=== PATIENT | female | born 1955 | race Caucasian/White ===

== ENCOUNTER 2022-07-14 13:20 | Emergency (ER) | payer OTHER ==
--- OUTSIDE RECORDS SUMMARY | 2022-07-14 13:32 | XMS REPORT | Continuity of Care Document ---
:1955 Author Organization [facility] t Address [address] [place] [address] Care Team Providers Name Role Phone PCP, PATIENT DOES NOT HAVE A Primary Care Physician Unavaila HEATHER Gibbons Attending Clinician Unavailable Heather Villalta Attending Clinician KENDALL HILLIARD Attending Clinician Unavailable Kendall Hilliard MD Attending Clinician Doctor Unassigned, [place] Attending Clinician Unavailable Pob, Adc Lab Main Attending Clinician Unavailable JASON Attending Clinician Unavailable JASON Admitting Clinician Unavailable Payers Payer Name Policy Type Policy Number Effective Date Expiration Date S ourgolden MEDICARE PART A \T\ [id number] 2018 B 00:00:00 [employer] [id number] 2018 00:00:00 COMMERCIAL [id number] NON-CONTRACT GENERIC [place]IC[place]: [id number] 2018 Dash - 00:00:00 [facility] [employer] [id number] 2018 (MEDICARE 00:00:00 SUPPLEMENT) [place]IC[place]: [id number] 2018 [employer] I-frontdesk 00:00:00 Problems Condition Condition Condition Status Onset Resolution Last Treating Co mments Source Name Details Category Date Date Treatment Clinician Date No known No known Disease Unive rs active active ity of problems problems [facility] Allergies, Adverse Reactions, Alerts Allergy Allergy Status Severity Reaction(s) Onset Inactive Treating Comm ents Source Name Type Date Date Clinician NO KNOWN Drug Active Univers ALLERGIE Class ity of S [facility] Social History Social Habit Start Date Stop Date Quantity Comments Source Exposure to 2022-05-26 2022-06-05 Not sure [facility]-CoV2 00:00:00 13:28:00 [facility] (event) [place] Alcohol intake 2022-06-05 2022-06-05 Current drinker Unive rsity of 00:00:00 00:00:00 of alcohol [facility] (finding) [place] Tobacco use and 2022-04-12 2022-04-12 Smokeless tobacco Un iversity of exposure 00:00:00 00:00:00 non-user [facility] Sex Assigned At [birth year] Universit y of 00:00:00 00:00:00 [facility] Smoking Status Start Date Stop Date Source Never smoked tobacco [facility] Medications Ordered Filled Start Stop Current Ordering Indication Dosage Frequency Signature Comments Components Source Medication Medication Date Date Medication? Clinician (SIG) Name Name No known No No known Unive rs medications 06-05 medication it y of 13:34: s [address] Vital Signs Vital Name Observation Time Observation Value Comments Source Systolic blood 2022-06-05 18:35:00 169 mm[Hg] Univer sity [facility] Diastolic blood 2022-06-05 18:35:00 80 mm[Hg] Unive rsity [facility] Heart rate 2022-06-05 18:35:00 66 /min [facility] Body height 2022-06-05 18:34:[address] [facility] Body weight 2022-06-05 18:34:[address] [facility] BMI 2022-06-05 18:34:00 22.31 kg/m2 [facility] Procedures This patient has no known procedures. Encounters Start End Encounter Admission Attending Care Care Encounter Source Date/Time Date/Time Type Type Clinicians Facility Department ID 2022-06-05 2022-06-05 Outpatient R LISETTE HURD [facility] [id number] Univers 13:40:00 23:59:00 HEATHER [facility] 2022-06-05 2022-06-05 Office LISETTE Hurd [id number] Univers 13:30:00 13:45:00 Visit Heather NEWBY [id number] it y of [place] [id number] Clark as PARKER?BLEA [id number] [place] wallace [address] MEDICAL OFFICE [facility] 2022-06-05 2022-06-05 Outpatient Woodrow KELLEN [facility] [id number] Univers 13:40:00 13:40:[address] [facility] 2022-06-05 2022-06-05 [facility] [id number] Univers 13:30:00 13:30:[address] [facility] 2022-06-05 2022-06-05 Outpatient Woodrow HURD [facility] [id number] Univers 13:30:00 13:30:00 [facility] 2022-04-27 2022-04-27 [facility] [id number] Univers 08:20:00 23:59:[address] [facility] 2022-04-27 2022-04-27 [facility] [id number] Univers 08:15:00 08:40:04 [facility] 2022-04-27 2022-04-27 Office [facility] [id number] Univers 08:15:00 08:40:04 Visit Kendall NEWBY [id number] it y of [place] 4.2.7.2.686 Clark as PARKER?BLEA [id number] [place] luisa[address] OFFICE [facility] 2022-04-13 2022-04-13 [facility] [id number] Univers 14:34:00 23:59:00 Encounter Kendall Raymond BOB 350.1.13.10 [place] [id number] [address] 2022-04-13 2022-04-13 [facility] NUT [id number] Univers 00:00:00 00:00:[address] [facility] 2022-04-13 2022-04-13 Telephone Shen [facility] [id number] Univers 00:00:00 00:00:00 Kendall Mandi ACUÑA 350.1.13.10 i ty of [facility] [id number] [phone] [place] wall[place] MYERS [address] [facility] 2022-04-13 2022-04-13 Orders Doctor EMMETT [id number] Univers 00:00:00 00:00:00 Only Unassigned, KAITLYNN 350.1.13.10 ity of [place] [facility] 4.2.7.2.686 Clark as [phone] [address] 2022-04-12 2022-04-12 Outpatient Woodrow [facility] [id number] Univers 14:30:00 23:59:[address] [facility] 2022-04-12 2022-04-12 Computer Video Game Designer Saqib, Adc Lab Main [facility] [id number] Univers 15:45:00 16:00:00 Visit Kendall Hilliard DOMENICO 350.1.13.10 ity of [place] 4.2.7.2.[place] [phone] [place] wallace [facility] [address] [facility] 2022-04-12 2022-04-12 Outpatient Woodrow HILLIARD [facility] [id number] Univers 13:30:00 14:39:[address] [facility] 2022-04-12 2022-04-12 Outpatient Woodrow HILLIARD [facility] [id number] Univers 13:30:00 14:39:[address] [facility] 2022-04-12 2022-04-12 [facility] [id number] Univers 13:30:00 14:39:21 Visit Kendall Raymond [facility] 350.1.13.10 it y of [place] 4.2.7.2.686 Clark as PARKER?BLEA [phone] [place] wallace [facility] 198 [facility] OFFICE BUILDING 2021-01-07 2021-01-07 Outpatient TURNER_FA [facility] [id number]- [id number] [place] 01:04:00 01:04:00 416 [facility] l Clinics Results This patient has no known results.
[2022-07-14] MEDS ORDERED: TETANUS & DIPHTHERIA TOX,ADULT 0.5 ML VIAL ONE (13:50)
[2022-07-14] MEDS ORDERED: LIDOCAINE 2% MPF 5 ML VIAL ONE (13:51)
--- NOTE | 2022-07-14 14:43 | ER ---
Nurse's Notes [facility] Name: Soha Vilchis Age: 66 yrs Sex: Female : 1955 Arrival Date: 07/14/2022 Time: 13:21 Bed 11 Private MD: Diagnosis: Laceration without foreign body of left hand Presentation: 07/14 13:36 Chief complaint: Patient states: broke a coffee cup in sink, went to pick it up and it iw cut her between her 3rd an 4th digit of left hand. Coronavirus screen: At this time, the client does not indicate any symptoms associated with coronavirus-19. Ebola Screen: Patient negative for fever greater than or equal to 101.5 degrees Fahrenheit, and additional compatible Ebola Virus Disease symptoms Patient denies exposure to infectious person. Patient denies travel to an Ebola-affected area in the 21 days before illness onset. No symptoms or risks identified at this time. Complicating Factors: There are no complicating factors for this patient. Initial Sepsis Screen: Does the patient meet any 2 criteria? No. Patient's initial sepsis screen is negative. Does the patient have a suspected source of infection? No. Patient's initial sepsis screen is negative. Risk Assessment: Do you want to hurt yourself or someone else? Patient reports no desire to harm self or others. Onset of symptoms was July 14, 2022. 13:36 Method Of Arrival: Ambulatory 13:36 Acuity: JADYN 4 iw Historical: - Allergies: 13:37 No Known Allergies; iw - Home Meds: 13:37 None [Active]; iw - PMHx: 13:37 None; iw - PSHx: 13:37 Ligation of fallopian tube; Right Ankle; left wrist; iw - Immunization history:: Last tetanus immunization: unknown. - Social history:: Smoking status: . Screenin:55 Abuse screen: Denies threats or abuse. Denies injuries from another. Nutritional hb screening: No deficits noted. Tuberculosis screening: No symptoms or risk factors identified. Fall Risk None identified. Assessment: 13:55 General: Appears in no apparent distress. Behavior is calm, cooperative. Pain: Pain hb currently is 2 out of 10 on a pain scale. Neuro: Level of Consciousness is awake, alert, obeys commands, Oriented to person, place, time, situation. Cardiovascular: Patient's skin is warm and dry. Respiratory: Respiratory effort is even, unlabored, Respiratory pattern is regular, symmetrical. GI: No signs and/or symptoms were reported involving the gastrointestinal system. : No signs and/or symptoms were reported regarding the genitourinary system. EENT: No signs and/or symptoms were reported regarding the EENT system. Derm: Skin is pink, warm \T\ dry. Musculoskeletal: No signs and/or symptoms reported regarding the musculoskeletal system. Injury Description: laceration on left palm. Vital Signs: 13:37 BP 147 / 74; Pulse 91; Resp 18; Temp 98.1; Pulse Ox 100% on R/A; tm3 ED Course: 13:21 Patient arrived in ED. am2 13:31 Sandy Michael FNP-C [facility] kb 13:31 Ewdard Garay MD is Attending Physician. kb 13:37 Triage completed. iw 13:37 Arm band placed on Patient placed. iw 13:48 Isa Marquez, RN is Primary Nurse. hb 13:55 Patient has correct armband on for positive identification. hb 14:50 No provider procedures requiring assistance completed. Patient did not have IV access hb during this emergency room visit. 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 Exp: hb 01/28/2024. Lot #: [id number]. } Route: IM; Site: left deltoid; 14:44 Follow up: Response: No adverse reaction hb 14:23 Drug: Lidocaine (1 %) 1 vials Volume: 5 ml; Route: Infiltration; hb Medication: 13:55 Vaccine Information Statement (VIS) provided today. Questions and/or concerns hb addressed. VIS edition date: July 14, 2022. Outcome: 14:42 Discharge ordered by . kb 14:50 Discharged to home ambulatory. hb 14:50 Condition: stable 14:50 Discharge instructions given to patient, Instructed on discharge instructions, follow up and referral plans. medication usage, Demonstrated understanding of instructions, follow-up care, medications. 14:50 Patient left the ED. hb Signatures: Sandy Michael FNP-C FNP-Baltazar Rajan tm3 Fior Heard RN RN Isa Marquez RN RN Filomena Shen am2 Corrections: (The following items were deleted from the chart) 13:56 13:55 VIS not applicable for this client. hb hb
--- NOTE | 2022-07-14 14:43 | EDPHYS ---
Physician Documentation [facility] Name: Soha Vilchis Age: 66 yrs Sex: Female : 1955 Arrival Date: 07/14/2022 Time: 13:21 Bed 11 Private MD: LETI Physician Edward Garay HPI: 07/14 14:40 This 66 yrs old Female presents to ER via Ambulatory with complaints of Laceration To kb Hand - between fingers. 14:40 The patient has a laceration occurred at home, and there are no complicating factors. kb The laceration(s) is(are) located on the left hand. Onset: The symptoms/episode began/occurred just prior to arrival. Associated signs and symptoms: The patient has no apparent associated signs or symptoms. The patient has not experienced similar symptoms in the past. The patient has not recently seen a physician. Pt states she dropped a coffee cup that she was washing and cut her left hand on it when she picked it up. . Historical: - Allergies: 13:37 No Known Allergies; iw - Home Meds: 13:37 None [Active]; iw - PMHx: 13:37 None; iw - PSHx: 13:37 Ligation of fallopian tube; Right Ankle; left wrist; iw - Immunization history:: Last tetanus immunization: unknown. - Social history:: Smoking status: . ROS: 14:40 Constitutional: Negative for fever, chills, and weight loss. kb 14:40 Skin: Positive for laceration(s), of the left hand. 14:40 All other systems are negative. Exam: 14:38 Constitutional: This is a well developed, well nourished patient who is awake, alert, kb and in no acute distress. Head/Face: Normocephalic, atraumatic. ENT: Moist Mucous membranes Cardiovascular: Regular rate and rhythm with a normal S1 and S2. No gallops, murmurs, or rubs. No pulse deficits. Respiratory: Respirations even and unlabored. No increased work of breathing. Talking in full sentences MS/ Extremity: Pulses equal, no cyanosis. Neurovascular intact. Full, normal range of motion. Neuro: Awake and alert, GCS 15, oriented to person, place, time, and situation. Moves all extremities. Normal gait. Psych: Awake, alert, with orientation to person, place and time. Behavior, mood, and affect are within normal limits. 14:38 Skin: injury, laceration(s), the wound is approximately 3 cm(s), of the webbing between third and forth digit of left hand, that can be described as clean, no foreign body, linear, without bleeding. Vital Signs: 13:37 BP 147 / 74; Pulse 91; Resp 18; Temp 98.1; Pulse Ox 100% on R/A; tm3 Laceration: 14:39 Wound Repair of 3cm ( 1.2in ) subcutaneous laceration to webbing between third and kb fourth digits on left hand. Linear shaped.. Distal neuro/vascular/tendon intact. Anesthesia: Wound infiltrated with 4 mls of 1% lidocaine. Wound prep: Extensive cleansing with hibiclenz by me, Wound irrigation with saline by me. Skin closed with 6 5-0 Prolene using simple sutures and sterile technique. Patient tolerated well. MDM: 13:31 Patient medically screened. kb 14:39 Data reviewed: vital signs, nurses notes. Data interpreted: Pulse oximetry: on room air kb is 100 %. Interpretation: normal. Counseling: I had a detailed discussion with the patient and/or guardian regarding: the historical points, exam findings, and any diagnostic results supporting the discharge/admit diagnosis, the need for outpatient follow up, a family practitioner, to return to the emergency department if symptoms worsen or persist or if there are any questions or concerns that arise at home. 07/14 13:45 Order name: Dressing - Wound; Complete Time: 13:54 kb 07/14 13:45 Order name: Gloves, Sterile; Complete Time: 13:54 kb 07/14 13:45 Order name: Prolene, Sutures; Complete Time: 13:54 kb 07/14 13:45 Order name: Setup Suture Tray; Complete Time: 13:54 kb Administered Medications: 13:54 Drug: Tetanus-Diphtheria Toxoid Adult 0.5 ml {Machine I Cutter: [employer]. Exp: hb 01/28/2024. Lot #: [id number]. } Route: IM; Site: left deltoid; 14:44 Follow up: Response: No adverse reaction hb 14:23 Drug: Lidocaine (1 %) 1 vials Volume: 5 ml; Route: Infiltration; hb Disposition Summary: 07/14/22 14:42 Discharge Ordered Location: Home kb Condition: Stable kb Diagnosis - Laceration without foreign body of left hand kb Followup: kb - With: Emergency Department - When: As needed - Reason: Worsening of condition Followup: kb - With: Private Physician - When: 2 - 3 days - Reason: Recheck today's complaints, Continuance of care, Re-evaluation by your physician Discharge Instructions: - Discharge Summary Sheet kb - Laceration Care, Adult, Tacl-gx-Azmh kb Forms: - Medication Reconciliation Form kb - Thank You Letter kb - Antibiotic Education kb - Prescription Opioid Use kb Addendum: 07/18/2022 04:07 Co-signature as Attending Physician, Edward Garay MD I agree with the assessment and c knott plan of care. Signatures: Sandy Michael, WHIPPED TOPPING MIXER-C WHIPPED TOPPING MIXER-Nemesiob Edward Garay MD MD cha Williams, Irene, RN RN iw Isa Marquez, RN RN
[2022-07-14 14:54] VITALS: BP 147/74; TEMP 98.1; O2SAT 100
== END 2022-07-14 14:50 | disposition home or self-care (01) ==
LOC: ER 13:20
PROC: 0JQK0ZZ Repair Left Hand Subcutaneous Tissue and Fascia, Open Approach (ICD-10-PCS; principal; 2022-07-14)
DX: S61.412A Laceration without foreign body of left hand, initial encounter (principal); W26.8XXA Contact with other sharp object(s), not elsewhere classified, initial encounter; Y93.G1 Activity, food preparation and clean up; Y92.010 Kitchen of single-family (private) house as the place of occurrence of the external cause; Z23 Encounter for immunization
CPT/HCPCS: 90471; 90714; 99283; 12002; J2001

== ENCOUNTER 2022-07-24 09:06 | Emergency (ER) | payer OTHER ==
--- OUTSIDE RECORDS SUMMARY | 2022-07-24 09:10 | XMS REPORT | Continuity of Care Document ---
:1955 Author Organization [facility] t Address [address] [place] [address] Care Team Providers Name Role Phone PCP, PATIENT DOES NOT HAVE A Primary Care Physician Unavaila HEATHER Gibbons Attending Clinician Unavailable Heather Villalta Attending Clinician KENDALL HILLIARD Attending Clinician Unavailable Kendall Hilliard MD Attending Clinician Doctor Unassigned, [place] Attending Clinician Unavailable Pob, Adc Lab Main Attending Clinician Unavailable JASON Attending Clinician Unavailable JASON Admitting Clinician Unavailable Payers Payer Name Policy Type Policy Number Effective Date Expiration Date S ourgolden MEDICARE PART A \T\ [id number] 2018 B 00:00:00 [employer] [id number] 2018 00:00:00 COMMERCIAL [id number] NON-CONTRACT GENERIC MEDIC[place]: [id number] 2018 [employer] - 00:00:00 [facility] [employer] [id number] 2018 (MEDICARE 00:00:00 SUPPLEMENT) MEDIC[place]: [id number] 2018 [employer] 00:00:00 Problems Condition Condition Condition Status Onset Resolution Last Treating Co mments Source Name Details Category Date Date Treatment Clinician Date No known No known Disease Unive rs active active ity of problems problems [facility] Allergies, Adverse Reactions, Alerts Allergy Allergy Status Severity Reaction(s) Onset Inactive Treating Comm ents Source Name Type Date Date Clinician NO KNOWN Drug Active Univers ALLERGIE Class ity of S [facility] Social History Social Habit Start Date Stop Date Quantity Comments Source Exposure to 2022-05-26 2022-06-05 Not sure [facility]-CoV2 00:00:00 13:28:00 [facility] (event) [place] Alcohol intake 2022-06-05 2022-06-05 Current drinker Unive rsity of 00:00:00 00:00:00 of alcohol [facility] (finding) [place] Tobacco use and 2022-04-12 2022-04-12 Smokeless tobacco Un iversity of exposure 00:00:00 00:00:00 non-user [facility] Sex Assigned At [birth year] Universit y of 00:00:00 00:00:00 [facility] Smoking Status Start Date Stop Date Source Never smoked tobacco [facility] Medications Ordered Filled Start Stop Current Ordering Indication Dosage Frequency Signature Comments Components Source Medication Medication Date Date Medication? Clinician (SIG) Name Name No known No No known Unive rs medications 06-05 medication it y of 13:34: s [address] Vital Signs Vital Name Observation Time Observation Value Comments Source Systolic blood 2022-06-05 18:35:00 169 mm[Hg] Univer sity [facility] Diastolic blood 2022-06-05 18:35:00 80 mm[Hg] Unive rsity [facility] Heart rate 2022-06-05 18:35:00 66 /min [facility] Body height 2022-06-05 18:34:00 157.5 cm [facility] Body weight 2022-06-05 18:34:00 55.339 kg [facility] BMI 2022-06-05 18:34:00 22.31 kg/m2 [facility] Procedures This patient has no known procedures. Encounters Start End Encounter Admission Attending Care Care Encounter Source Date/Time Date/Time Type Type Clinicians Facility Department ID 2022-06-05 2022-06-05 Outpatient R LISETTE HURD [facility] [id number] Univers 13:40:00 23:59:00 HEATHER [facility] 2022-06-05 2022-06-05 Office LISETTE Hurd [id number] Univers 13:30:00 13:45:00 Visit Heather NEWBY 350.1.13.10 it y of [place] [id number] Clark as PARKER?BLEA [id number] [place] wallace [address] MEDICAL OFFICE [facility] 2022-06-05 2022-06-05 Outpatient Woodrow KELLEN [facility] [id number] Univers 13:40:00 13:40:[address] [facility] 2022-06-05 2022-06-05 [facility] [id number] Univers 13:30:00 13:30:[address] [facility] 2022-06-05 2022-06-05 Outpatient Woodrow HURD [facility] [id number] Univers 13:30:00 13:30:00 [facility] 2022-04-27 2022-04-27 [facility] [id number] Univers 08:20:00 23:59:[address] [facility] 2022-04-27 2022-04-27 [facility] [id number] Univers 08:15:00 08:40:04 [facility] 2022-04-27 2022-04-27 Office [facility] [id number] Univers 08:15:00 08:40:04 Visit Kendall NEWBY 350.1.13.10 it y of [place] 4.2.7.2.686 Clark as PARKER?BLEA [id number] Co [address] OFFICE [facility] 2022-04-13 2022-04-13 [facility] [id number] [id number] Univers 14:34:00 23:59:00 Encounter Kendall Raymond BOB 350.1.13.10 [place] [id number] [address] 2022-04-13 2022-04-[address] [facility] NUT [id number] Univers 00:00:00 00:00:[address] [facility] 2022-04-13 2022-04-13 Telephone Shen [facility] [id number] Univers 00:00:00 00:00:00 Kendall Mandi ACUÑA 350.1.13.10 i ty of [facility] [id number] [id number] [place] wallace MYERS [address] [employer] 2022-04-13 2022-04-13 Orders Doctor EMMETT [id number] [id number] Univers 00:00:00 00:00:00 Only Unassigned, KAITLYNN 350.1.13.10 ity of [place] [facility] [id number] Clark as [id number] [address] 2022-04-12 2022-04-12 Outpatient Woodrow [facility] [id number] Univers 14:30:00 23:59:[address] [facility] 2022-04-12 2022-04-12 Crime Data Specialist Saqib, Adc Lab Main [facility] 1.2.8 [id number] [id number] Univers 15:45:00 16:00:00 Visit Kendall Hilliard DOMENICO 350.1.13.10 ity of [place] 4.2.7.2.[place] [id number] Co wallace [facility] [address] [employer] 2022-04-12 2022-04-12 Outpatient Woodrow HILLIARD [facility] [id number] Univers 13:30:00 14:39:[address] [facility] 2022-04-12 2022-04-12 Outpatient Woodrow HILLIARD [facility] [id number] Univers 13:30:00 14:39:[address] [facility] 2022-04-12 2022-04-[address] [facility] [id number] Univers 13:30:00 14:39:21 Visit Kendall Raymond [facility] 350.1.13.10 it y [facility] [id number] Clark as PARKER?BLEA [phone] Co wallace [facility] [address] [facility] OFFICE BUILDING 2021-01-07 2021-01-07 Outpatient TURNER_FA [facility] [id number] [place] 01:04:00 01:04:00 416 [facility] i [facility] l Clinics Results This patient has no known results.
--- NOTE | 2022-07-24 09:21 | ER ---
Nurse's Notes [facility] Name: Soha Vilchis Age: 67 yrs Sex: Female : 1955 Arrival Date: 07/24/2022 Time: 09:08 Bed Waiting Private MD: Diagnosis: Encounter for removal of sutures Presentation: 07/24 09:16 Chief complaint: Patient states: sutures placed to left hand 10 days ago , need to be iw removed. Coronavirus screen: At this time, the client does not indicate any symptoms associated with coronavirus-19. Ebola Screen: Patient negative for fever greater than or equal to 101.5 degrees Fahrenheit, and additional compatible Ebola Virus Disease symptoms Patient denies exposure to infectious person. Patient denies travel to an Ebola-affected area in the 21 days before illness onset. No symptoms or risks identified at this time. 09:16 Method Of Arrival: Ambulatory iw 09:16 Acuity: JADYN 4 iw 09:17 Initial Sepsis Screen: Does the patient meet any 2 criteria? No. Patient's initial iw sepsis screen is negative. Does the patient have a suspected source of infection? No. Patient's initial sepsis screen is negative. Risk Assessment: Do you want to hurt yourself or someone else? Patient reports no desire to harm self or others. Onset of symptoms was July 14, 2022. Historical: - PSHx: 09:17 Left wrist; Ligation of fallopian tube; Right Ankle; iw Assessment: 09:25 Reassessment: Nia ELECTRONIC RESOURCES LIBRARIAN removed two sutures, pt will return on to have iw remaining sutures removed. Vital Signs: 09:17 Pulse 68; Resp 16; Pulse Ox 99% on R/A; iw 09:18 BP 153 / 63; iw ED Course: 09:08 Patient arrived in ED. am2 09:16 Triage completed. iw 09:20 Sandy [facility]-C [facility]. kb 09:20 Erik Hendricks MD is Attending Physician. kb Administered Medications: No medications were administered Outcome: 09:20 Discharge ordered by . kb 09:25 Discharged to home ambulatory. iw 09:25 Condition: good 09:25 Discharge instructions given to patient, Instructed on discharge instructions, follow up and referral plans. Demonstrated understanding of instructions, follow-up care. 09:26 Patient left the ED. iw Signatures: Sandy Michael, SOFT SHOE DANCER-C SOFT SHOE DANCER-Fior Sy, RN RN iw Filomena Shen am2 Corrections: (The following items were deleted from the chart) 09:18 09:16 Chief complaint: Patient states: sutures placed 10 days ago , need to be removed iw iw
--- NOTE | 2022-07-24 09:21 | EDPHYS ---
Physician Documentation [facility] Name: Soha Vilchis Age: 67 yrs Sex: Female : 1955 Arrival Date: 07/24/2022 Time: 09:08 Bed Waiting Private MD: ED Physician Erik Hendricks HPI: 07/24 10:31 This 67 yrs old Female presents to ER via Ambulatory with complaints of Suture Removal. kb 10:31 The patient has sutures on the dorsal aspect of proximal phalanx of left ring finger kb and dorsal aspect of proximal phalanx of left middle finger. Previous treatment: The patient was initially treated 10 day(s) ago, the care was rendered at [facility]. The patient has not experienced similar symptoms in the past. The patient has been recently seen at the [facility] Emergency Department. laceration healing well. Historical: - PSHx: 09:17 Left wrist; Ligation of fallopian tube; Right Ankle; iw ROS: 10:30 Constitutional: Negative for fever, chills, and weight loss. kb 10:30 Skin: Positive for of the dorsal aspect of proximal phalanx of left middle finger and dorsal aspect of proximal phalanx of left ring finger, sutures in place. 10:30 All other systems are negative. Exam: 10:30 Constitutional: This is a well developed, well nourished patient who is awake, alert, kb and in no acute distress. Head/Face: Normocephalic, atraumatic. ENT: Moist Mucous membranes Cardiovascular: Regular rate and rhythm with a normal S1 and S2. No gallops, murmurs, or rubs. No pulse deficits. Respiratory: Respirations even and unlabored. No increased work of breathing. Talking in full sentences MS/ Extremity: Pulses equal, no cyanosis. Neurovascular intact. Full, normal range of motion. Neuro: Awake and alert, GCS 15, oriented to person, place, time, and situation. Moves all extremities. Normal gait. 10:30 Skin: Wound recheck: Suture laceration closure: the wound is healing well, the edges are well approximated, no drainage, no erythema, no swelling. Vital Signs: 09:17 Pulse 68; Resp 16; Pulse Ox 99% on R/A; iw 09:18 BP 153 / 63; iw Procedures: 10:27 Suture/Staple removal: Removed 1 sutures, from left hand, site appears healing well, kb Patient tolerated well. MDM: 09:20 Patient medically screened. kb 10:27 Data reviewed: vital signs, nurses notes. Data interpreted: Pulse oximetry: on room air kb is 99 %. Interpretation: normal. Counseling: I had a detailed discussion with the patient and/or guardian regarding: the historical points, exam findings, and any diagnostic results supporting the discharge/admit diagnosis, the need for outpatient follow up, a family practitioner, to return to the emergency department if symptoms worsen or persist or if there are any questions or concerns that arise at home. 10:29 ED course: Pt reports her hands stay in water a lot. Educated to keep area dry and open kb to air so it can heal. Pt will return on to have remaining sutures removed. Administered Medications: No medications were administered Disposition: 14:18 Co-signature as Attending Physician, Erik Hendricks MD I agree with the assessment and kdr plan of care. Disposition Summary: 07/24/22 09:20 Discharge Ordered Location: Home kb Condition: Stable kb Diagnosis - Encounter for removal of sutures kb Followup: kb - With: Emergency Department - When: As needed - Reason: Worsening of condition Followup: kb - With: Private Physician - When: 2 - 3 days - Reason: Recheck today's complaints, Continuance of care, Re-evaluation by your physician Discharge Instructions: - Discharge Summary Sheet kb - Suture Removal, Care After kb Forms: - Medication Reconciliation Form kb - Thank You Letter kb - Antibiotic Education kb - Prescription Opioid Use kb Signatures: Sandy Michael, CODING CONSULTANT-C REYNOLD-Erik Silva MD MD kdr Fior Heard RN RN iw Corrections: (The following items were deleted from the chart) 10:31 10:30 Skin: Positive for of the dorsal aspect of proximal phalanx of left middle finger kb and dorsal aspect of proximal phalanx of left ring finger, kb
[2022-07-24 09:41] VITALS: BP 153/63; O2SAT 99
== END 2022-07-24 09:26 | disposition home or self-care (01) ==
LOC: ER 09:06
DX: Z48.02 Encounter for removal of sutures (principal)
CPT/HCPCS: 99281

== ENCOUNTER 2022-07-31 08:00 | Emergency (ER) | payer OTHER ==
--- OUTSIDE RECORDS SUMMARY | 2022-07-31 08:03 | XMS REPORT | Continuity of Care Document ---
:1955 Author Organization [facility] t Address [address] [place] [address] Care Team Providers Name Role Phone PCP, PATIENT DOES NOT HAVE A Primary Care Physician Unavaila HEATHER Gibbons Attending Clinician Unavailable Heather Villalta Attending Clinician KENDALL HILLIARD Attending Clinician Unavailable Kendall Hilliard MD Attending Clinician Doctor Unassigned, [place] Attending Clinician Unavailable Pob, [facility] Main Attending Clinician Unavailable JASON Attending Clinician Unavailable JASON Admitting Clinician Unavailable Payers Payer Name Policy Type Policy Number Effective Date Expiration Date S ourgolden MEDICARE PART A \T\ [id number] 2018 B 00:00:00 [employer] [id number] 2018 00:00:00 COMMERCIAL [id number] NON-CONTRACT GENERIC [place]IC[place]: [id number] 2018 [employer] ([employer]) - 00:00:00 [facility] [employer] [id number] 2018 (MEDICARE 00:00:00 SUPPLEMENT) MEDICARE A-[place]: [id number] 2018 [employer] 00:00:00 Problems Condition Condition Condition Status Onset Resolution Last Treating Co mments Source Name Details Category Date Date Treatment Clinician Date No known No known Disease Unive rs active active ity of problems problems [facility] Allergies, Adverse Reactions, Alerts Allergy Allergy Status Severity Reaction(s) Onset Inactive Treating Comm ents Source Name Type Date Date Clinician NO KNOWN Drug Active Univers ALLERGIE Class ity of S [facility] Social History Social Habit Start Date Stop Date Quantity Comments Source Exposure to 2022-05-26 2022-06-05 Not sure [facility]-CoV2 00:00:00 13:28:00 [facility] (event) [place] Alcohol intake 2022-06-05 2022-06-05 Current drinker Unive rsity of 00:00:00 00:00:00 of alcohol [facility] (finding) [place] Tobacco use and 2022-04-12 2022-04-12 Smokeless tobacco Un iversity of exposure 00:00:00 00:00:00 non-user [facility] Sex Assigned At [birth year] Universit y of 00:00:00 00:00:00 [facility] Smoking Status Start Date Stop Date Source Never smoked tobacco [facility] Medications Ordered Filled Start Stop Current Ordering Indication Dosage Frequency Signature Comments Components Source Medication Medication Date Date Medication? Clinician (SIG) Name Name No known No No known Unive rs medications 06-05 medication it y of 13:34: s [address] Vital Signs Vital Name Observation Time Observation Value Comments Source Systolic blood 2022-06-05 18:35:00 169 mm[Hg] Univer sity [facility] Diastolic blood 2022-06-05 18:35:00 80 mm[Hg] Unive rsity [facility] Heart rate 2022-06-05 18:35:00 66 /min [facility] Body height 2022-06-05 18:34:00 157.5 cm [facility] Body weight 2022-06-05 18:34:00 55.339 kg [facility] BMI 2022-06-05 18:34:00 22.31 kg/m2 [facility] Procedures This patient has no known procedures. Encounters Start End Encounter Admission Attending Care Care Encounter Source Date/Time Date/Time Type Type Clinicians Facility Department ID 2022-06-05 2022-06-05 Outpatient R LISETTE HURD [facility] [id number] Univers 13:40:00 23:59:00 HEATHER [facility] 2022-06-05 2022-06-05 Office LISETTE Hurd [id number] Univers 13:30:00 13:45:00 Visit Heather NEWBY [id number] it y of [place] [id number] Clark as PARKER?BLEA [phone] Md wallace [address] MEDICAL OFFICE [facility] 2022-06-05 2022-06-05 Outpatient Woodrow KELLEN [facility] [id number] Univers 13:40:00 13:40:00 HEATHER ity [facility] 2022-06-05 2022-06-05 [facility] [id number] Univers 13:30:00 13:30:00 HEATHER ity [facility] 2022-06-05 2022-06-05 Outpatient Woodrow HURD [facility] [id number] Univers 13:30:00 13:30:00 [facility] 2022-04-27 2022-04-27 [facility] [id number] Univers 08:20:00 23:59:00 KENDALL zhang [facility] 2022-04-27 2022-04-27 [facility] [id number] Univers 08:15:00 08:40:04 [facility] 2022-04-27 2022-04-27 Office [facility] [id number] Univers 08:15:00 08:40:04 Visit Kendall NEWBY [id number] it y of [place] [id number] Clark as PARKER?BLEA [phone] Md luisa[address] OFFICE [facility] 2022-04-13 2022-04-13 [facility] [id number] Univers 14:34:00 23:59:00 Encounter Kendall Raymond BOB [id number] [id number] [id number] [address] 2022-04-13 2022-04-13 [facility] N[facility] [id number] Univers 00:00:00 00:00:00 KENDALL parkerchristian [facility] 2022-04-13 2022-04-13 Telephone Shen [facility] [id number] Univers 00:00:00 00:00:00 Kendall Mandi ACUÑA [id number] i ty of [place] [facility] [id number] [place] [phone] Md wallace MYERS [address] [facility] 2022-04-13 2022-04-13 Orders Doctor EMMETT [id number] Univers 00:00:00 00:00:00 Only Unassigned, KAITLYNN [id number] ity of [place] [facility] [id number] Clark as [id number] [address] 2022-04-12 2022-04-12 [facility]patient Wood[facility] [id number] Univers 14:30:00 23:59:00 KENDALL zhang [facility] 2022-04-12 2022-04-12 Sap Solution Manager Consultant Saqib, Ad[facility] Lab Main [facility] [id number] Univers 15:45:00 16:00:00 Visit Kendall Hilliard DOMENICO [id number] ity of [id number] [id number] Md wallace [facility] [address] [facility] 2022-04-12 2022-04-12 Outpatient Woodrow HILLIARD [facility] [id number] Univers 13:30:00 14:39:21 KENDALL zhang [facility] 2022-04-12 2022-04-12 Outpatient Woodrow HILLIARD [facility] [id number] Univers 13:30:00 14:39:21 KENDALL zhang [facility] 2022-04-12 2022-04-12 [facility] [id number] Univers 13:30:00 14:39:21 Visit Kendall Raymond [facility] [id number] it y [facility] [id number] [place] as PARKER?BLEA [phone] Md wallace [facility] [address] [facility] OFFICE BUILDING 2021-01-07 2021-01-07 Outpatient [facility] [id number] [place] 01:04:00 01:04:00 [address] [facility] i [facility] Clinics Results This patient has no known results.
--- NOTE | 2022-07-31 08:14 | ER ---
Nurse's Notes [facility] Name: Soha Vilchis Age: 67 yrs Sex: Female : 1955 Arrival Date: 07/31/2022 Time: 08:01 Bed Waiting Private MD: Diagnosis: Encounter for removal of sutures Presentation: 07/31 08:06 Chief complaint: Patient states: needs sutures removed from left hand. Was seen here on mb8 Sunday which was day 10 and she was told they were not ready to come out. Coronavirus screen: Vaccine status: Patient reports being unvaccinated. Ebola Screen: Patient negative for fever greater than or equal to 101.5 degrees Fahrenheit, and additional compatible Ebola Virus Disease symptoms Patient denies exposure to infectious person. Patient denies travel to an Ebola-affected area in the 21 days before illness onset. Initial Sepsis Screen: Does the patient meet any 2 criteria? No. Patient's initial sepsis screen is negative. Does the patient have a suspected source of infection? No. Patient's initial sepsis screen is negative. Risk Assessment: Do you want to hurt yourself or someone else? Patient reports no desire to harm self or others. Onset of symptoms is unknown. 08:06 Method Of Arrival: Ambulatory mb8 08:06 Acuity: JADYN 5 mb8 Triage Assessment: 08:08 General: Appears in no apparent distress. comfortable, Behavior is calm, cooperative, mb8 appropriate for age. Pain: Denies pain. Historical: - Allergies: 08:08 No Known Allergies; mb8 - Home Meds: 08:08 None [Active]; mb8 - PMHx: 08:08 None; mb8 - PSHx: 08:08 Left wrist; Ligation of fallopian tube; Right Ankle; mb8 - Social history:: Smoking status: Patient denies any tobacco usage or history of. Screenin:12 Abuse screen: Denies threats or abuse. Denies injuries from another. Nutritional mb8 screening: No deficits noted. Tuberculosis screening: No symptoms or risk factors identified. Fall Risk None identified. 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 mb8 Vital Signs: 08:06 BP 163 / 71; Pulse 63; Resp 18; Temp 97.1; Pulse Ox 100% on R/A; Weight 55.79 kg; mb8 Height 5 ft. 2 in. (157.48 cm); Pain 0/10; 08:06 Body Mass Index 22.50 (55.79 kg, 157.48 cm) mb8 ED Course: 08:01 Patient arrived in ED. am2 08:03 Mana Cotter FNP is [facility] 7 08:03 Ross Dowd MD is Attending Physician. 7 08:08 Triage completed. mb8 08:08 Arm band placed on left wrist. mb8 08:12 Patient has correct armband on for positive identification. mb8 08:12 No provider procedures requiring assistance completed. Patient did not have IV access mb8 during this emergency room visit. Administered Medications: No medications were administered Medication: 08:12 VIS not applicable for this client. mb8 Outcome: 08:13 Discharge ordered by . [facility] 08:25 Discharged to home ambulatory. mb8 08:25 Condition: stable 08:25 Discharge instructions given to patient, Instructed on discharge instructions, wound care, Demonstrated understanding of instructions, wound care. 08:26 Patient left the ED. mb8 Signatures: Filomena Shen am2 Mana Cotter FNP FNP [facility] Alonso Gao, RN RN mb8
--- NOTE | 2022-07-31 08:14 | EDPHYS ---
Physician Documentation [facility] Name: Soha Vilchis Age: 67 yrs Sex: Female : 1955 Arrival Date: 07/31/2022 Time: 08:01 Bed Waiting Private MD: ED Physician Ross Dowd HPI: 07/31 08:08 This 67 yrs old Female presents to ER via Ambulatory with complaints of Suture Removal. [facility] 08:08 The patient has sutures on the left hand. Previous treatment: The patient was initially jh7 treated on July 14, 2022. Sutures/juan progress: The patient has no c/o's. The wound is well-healing with no redness, swelling, discharge, or dehiscence reported. Historical: - Allergies: 08:08 No Known Allergies; mb8 - Home Meds: 08:08 None [Active]; mb8 - PMHx: 08:08 None; mb8 - PSHx: 08:08 Left wrist; Ligation of fallopian tube; Right Ankle; mb8 - Social history:: Smoking status: Patient denies any tobacco usage or history of. ROS: 08:08 Constitutional: Negative for fever, chills, and weight loss, Cardiovascular: Negative [facility] for chest pain, palpitations, and edema, Respiratory: Negative for shortness of breath, cough, wheezing, and pleuritic chest pain, MS/Extremity: Negative for injury and deformity, Neuro: Negative for headache, weakness, numbness, tingling, and seizure. 08:08 Skin: Positive for Sutures in place. 08:08 All other systems are negative. Exam: 08:08 Constitutional: This is a well developed, well nourished patient who is awake, alert, jh7 and in no acute distress. Head/Face: Normocephalic, atraumatic. Cardiovascular: Regular rate and rhythm with a normal S1 and S2. No gallops, murmurs, or rubs. Normal PMI, no JVD. No pulse deficits. Respiratory: Lungs have equal breath sounds bilaterally, clear to auscultation and percussion. No rales, rhonchi or wheezes noted. No increased work of breathing, no retractions or nasal flaring. MS/ Extremity: Pulses equal, no cyanosis. Neurovascular intact. Full, normal range of motion. Neuro: Awake and alert, GCS 15, oriented to person, place, time, and situation. Motor strength 5/5 in all extremities. Sensory grossly intact. Normal gait. 08:08 Skin: Wound recheck: Suture laceration closure: the wound is healing well, the edges are well approximated. Vital Signs: 08:06 BP 163 / 71; Pulse 63; Resp 18; Temp 97.1; Pulse Ox 100% on R/A; Weight 55.79 kg; mb8 Height 5 ft. 2 in. (157.48 cm); Pain 0/10; 08:06 Body Mass Index 22.50 (55.79 kg, 157.48 cm) 8 Procedures: 08:08 Suture/Staple removal: Removed 5 sutures, from left hand, site appears well healed, jh7 dressed with none. Patient tolerated well. MDM: 08:04 Patient medically screened. [facility] 08:08 Data reviewed: vital signs, nurses notes. Data interpreted: Pulse oximetry: is [address] %. [facility] Interpretation: normal. Counseling: I had a detailed discussion with the patient and/or guardian regarding: the historical points, exam findings, and any diagnostic results supporting the discharge/admit diagnosis, to return to the emergency department if symptoms worsen or persist or if there are any questions or concerns that arise at home. Administered Medications: No medications were administered Disposition: 14:57 Co-signature as Attending Physician, Ross Dowd MD. rn Disposition Summary: 07/31/22 08:13 Discharge Ordered Location: Home [facility] Problem: new [facility] Symptoms: have improved jh Condition: Stable 7 Diagnosis - Encounter for removal of sutures [facility] Followup: [facility] - With: Private Physician - When: As needed - Reason: Discharge Instructions: - Discharge Summary Sheet [facility] - Suture Removal, Care After jh7 Forms: - Medication Reconciliation Form [facility] - Thank You Letter [facility] Signatures: Ross Dowd MD MD rn Hadash, Jennifer, FNP FAST FOOD SERVER [facility] Alonso Gao RN RN mb8
[2022-07-31 08:31] VITALS: BP 163/71; TEMP 97.1; O2SAT 100
== END 2022-07-31 08:26 | disposition home or self-care (01) ==
LOC: ER 08:00
DX: Z48.02 Encounter for removal of sutures (principal)
CPT/HCPCS: 99281